=== PATIENT | male | born 1990 | race Caucasian/White ===

== ENCOUNTER 2016-12-22 20:37 | Emergency (ER) | payer OTHER ==
--- NOTE | 2016-12-22 21:42 | ED ORDER SUMMARY ---
..... Patient: ADA MCELROY OrderSheet [facility] VisitID: [id number] [address] [place] [address] 26y, M Registration Date/Time: 12/22/2016 ORDER SHEET Weight: 113.3 kg (stated) Allergies: Penicillin, Codeine GENERAL ORDERS: UA-Culture if indicated Urgent (21:13 12/22/2016 EKoroleva P.A.-C) (21:15 TLewis R.N.) MEDICATION ORDERS: Valium PO 5 mg (HIGH ALERT MEDICATION, NOW) (20:54 12/22/2016 EKoroleva P.A.-C) (21:00 TLewis R.N.) Motrin PO 800 mg (NOW) (20:54 12/22/2016 EKoroleva P.A.-C) (21:01 TLewis R.N.) IV FLUIDS: ORDER SHEET NOTES: [Electronically signed by Elmira StricklandAGhada-Jose Antonio (22:08 12/22/2016)] [Electronically signed by Flavio Mcdonald R.N. (22:18 12/22/2016)] [Electronically locked/signed by Flavio Mcdonald R.N. (22:18 12/22/2016)]
--- NOTE | 2016-12-22 21:42 | ED NURSING NOTES ---
Clinical Report - Nurses [facility] [place] [address] 12/22/2016 20:39 Patient: ADA MCELROY TRIAGE Triage time 20:43. Acuity: LEVEL 3. Chief Complaint: BACK PAIN. --20:52 Flavio Mcdonald R.N. 20:41 12/22/16. BP: 136/69. HR: 70. RR: 20. O2 saturation: 98%. Temp: 98.1 F. Pain level now 06/19. --20:52 Flavio Mcdonald R.N. Weight: 113.3 kg stated. Height/Length: 74 inches Per Patient. BMI: 32.1. --20:46 Flavio Mcdonald R.N. Medications CeleBREX Oral. --20:48 Flavio Mcdonald R.N. Methocarbamol Oral. --20:48 Flavio Mcdonald R.N. Allergies Penicillin. --20:48 Flavio Mcdonald R.N. Codeine. --20:48 Flavio Mcdonald R.N. Medication/allergy information source: the patient. --20:52 Flavio Mcdonald R.N. History Arrived by private vehicle. Historian: patient. Accompanied by friend. This started yesterday. ( Pt started having back pain since yesterday. 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 Pt took methocarbinol 500mg x 2 before coming in today. Pt denies any numbness or tingling down the legs. Pt was able to ambulate to the room without assistance. Pt denies any urinary symptoms.). No history of recent trauma. 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 (methocarbinol x 2 500 mg). SOCIAL HX: No alcohol use or drug use. --20:52 Flavio Mcdonald R.N. PROBLEMS: Back Pain. --20:51 Flavio Mcdonald R.N. ADDITIONAL SURGERIES: Parathyroid sx. --20:50 Flavio Mcdonald R.N. Interventions ID band on patient. To treatment room. --20:52 Flavoi Mcdonald R.N. PHYSICAL ASSESSMENT GENERAL / NEURO / PSYCH: Alert. Oriented X 4. Appears in no acute distress. RESPIRATORY: Respirations not labored. Chest nontender. Breath sounds within normal limits. CVS: Normal heart rate and rhythm. Capillary refill less than 2 seconds. GI / : Abdomen soft and nontender. Bowel sounds within normal limits. EXTREMITIES: Sensation intact in extremities. ROM of extremities within normal limits. BACK: Limited ROM of the back. Soft tissue tenderness in the right mid thoracic paraspinous region. --20:52 Flavio Mcdonald R.N. NURSING PROGRESS NOTES Two patient identifiers checked. Call light placed in reach. Side rails up x 1. Bed placed in lowest position. --20:53 Flavio Mcdonald R.N. 21:00 12/22/2016 Valium (Diazepam) PO 5 mg given. 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 --21:00 Flavio Mcdonald R.N. 21:01 12/22/2016 Motrin PO 800 mg (NOW) was refused by patient because of they were told not to take motrin due to the high level of celebrex. Flavio Mcdonald --21:01 Flavio Mcdonald R.N. DISPOSITION / DISCHARGE Departure time: 22:17. Condition at departure: improved. ( no pain while laying down). No learning barriers present. Discharge instructions provided and reviewed with the patient and spouse. Reviewed warnings. Reviewed medication(s). Work note given (2 days). The patient was discharged by the physician. He was discharged home and accompanied by spouse. He left the Emergency Department ambulatory and via private vehicle. Spouse driving. ( The asked to speak to the PA and was upset that nothing was done for her , who was not in pain while laying down. Pt has been taken muscle relaxers at home and was given valium in the hospital and a prescription for it. The stated she wish she had never came to "[facility]"). --22:18 Flavio Mcdonald R.N. 22:04 12/22/16. BP: 132/67. HR: 67. RR: 15. O2 saturation: 100%. Temp: 98.3 F. Pain level now 0/10. --22:18 Flavio Mcdonald R.N. Locked/Released at 12/22/2016 22:18 by Flavio Mcdonald R.N.
--- NOTE | 2016-12-22 21:42 | ED ORDER SUMMARY ---
..... Patient: ADA MCELROY OrderSheet [facility] VisitID: [id number] [address] [place] [address] 26y, M Registration Date/Time: 12/22/2016 ORDER SHEET Weight: 113.3 kg (stated) Allergies: Penicillin, Codeine GENERAL ORDERS: UA-Culture if indicated Urgent (21:13 12/22/2016 EKoroleva P.A.-C) (21:15 TLewis R.N.) MEDICATION ORDERS: Valium PO 5 mg (HIGH ALERT MEDICATION, NOW) (20:54 12/22/2016 EKoroleva P.A.-C) (21:00 TLewis R.N.) Motrin PO 800 mg (NOW) (20:54 12/22/2016 EKoroleva P.A.-C) (21:01 TLewis R.N.) IV FLUIDS: ORDER SHEET NOTES: [Electronically signed by Elmira StricklandAGhada-Jose Antonio (22:08 12/22/2016)] [Electronically signed by Flavio Mcdonald R.N. (22:18 12/22/2016)] [Electronically locked/signed by Flavio Mcdonald R.N. (22:18 12/22/2016)]
--- NOTE | 2016-12-22 21:42 | ED NURSING NOTES ---
Clinical Report - Nurses [facility] [place] [address] [address] [place] [address] 12/22/2016 20:39 Patient: ADA MCELROY TRIAGE Triage time 20:43. Acuity: LEVEL 3. Chief Complaint: BACK PAIN. --20:52 Flavio Mcdonald R.N. 20:41 12/22/16. BP: 136/69. HR: 70. RR: 20. O2 saturation: 98%. Temp: 98.1 F. Pain level now 06/19. --20:52 Flavio Mcdonald R.N. Weight: 113.3 kg stated. Height/Length: 74 inches Per Patient. BMI: 32.1. --20:46 Flavio Mcdonald R.N. Medications CeleBREX Oral. --20:48 Flavio Mcdonald R.N. Methocarbamol Oral. --20:48 Flavio Mcdonald R.N. Allergies Penicillin. --20:48 Flavio Mcdonald R.N. Codeine. --20:48 Flavio Mcdonald R.N. Medication/allergy information source: the patient. --20:52 Flaivo Mcdonald R.N. History Arrived by private vehicle. Historian: patient. Accompanied by friend. This started yesterday. ( Pt started having back pain since yesterday. 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 Pt took methocarbinol 500mg x 2 before coming in today. Pt denies any numbness or tingling down the legs. Pt was able to ambulate to the room without assistance. Pt denies any urinary symptoms.). No history of recent trauma. 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 (methocarbinol x 2 500 mg). SOCIAL HX: No alcohol use or drug use. --20:52 Flavio Mcdonald R.N. PROBLEMS: Back Pain. --20:51 Flavio Mcdonald R.N. ADDITIONAL SURGERIES: Parathyroid sx. --20:50 Flavio Mcdonald R.N. Interventions ID band on patient. To treatment room. --20:52 Flavio Mcdonald R.N. PHYSICAL ASSESSMENT GENERAL / NEURO / PSYCH: Alert. Oriented X 4. Appears in no acute distress. RESPIRATORY: Respirations not labored. Chest nontender. Breath sounds within normal limits. CVS: Normal heart rate and rhythm. Capillary refill less than 2 seconds. GI / : Abdomen soft and nontender. Bowel sounds within normal limits. EXTREMITIES: Sensation intact in extremities. ROM of extremities within normal limits. BACK: Limited ROM of the back. Soft tissue tenderness in the right mid thoracic paraspinous region. --20:52 Flavio Mcdonald R.N. NURSING PROGRESS NOTES Two patient identifiers checked. Call light placed in reach. Side rails up x 1. Bed placed in lowest position. --20:53 Flavio Mcdonald R.N. 21:00 12/22/2016 Valium (Diazepam) PO 5 mg given. Allergies verified, confirmed 5 rights and sedative warning given to the patient and patient's public relations officer. --21:00 Flavio Mcdonald R.N. 21:01 12/22/2016 Motrin PO 800 mg (NOW) was refused by patient because of they were told not to take motrin due to the high level of celebrex. Flavio Mcdonald --21:01 Flavio Mcdonald R.N. DISPOSITION / DISCHARGE Departure time: 22:17. Condition at departure: improved. ( no pain while laying down). No learning barriers present. Discharge instructions provided and reviewed with the patient and spouse. Reviewed warnings. Reviewed medication(s). Work note given (2 days). The patient was discharged by the physician. He was discharged home and accompanied by spouse. He left the Emergency Department ambulatory and via private vehicle. Spouse driving. ( The asked to speak to the PA and was upset that nothing was done for her , who was not in pain while laying down. Pt has been taken muscle relaxers at home and was given valium in the hospital and a prescription for it. The stated she wish she had never came to "[facility]"). --22:18 Flavio Mcdonald R.N. 22:04 12/22/16. BP: 132/67. HR: 67. RR: 15. O2 saturation: 100%. Temp: 98.3 F. Pain level now 0/10. --22:18 Flavio Mcdonald R.N. Locked/Released at 12/22/2016 22:18 by Flavio Mcdonald R.N.
--- NOTE | 2016-12-22 21:42 | ED CLINICAL REPORT ---
Clinical Report - Physicians/Mid Levels [facility] [address] [place] [address] 12/22/2016 20:39 Patient: ADA MCELROY Time Seen: 21:22 Dec 22 2016. Arrived- By private vehicle. Historian- patient. HISTORY OF PRESENT ILLNESS Chief Complaint: BACK PAIN. It is described as being moderate in degree and in the area of the right lower ribs. The quality is noted to be "pain". Onset was just prior to arrival and it is still present. No bladder dysfunction or bowel dysfunction. Additional history - Patient reports right lower ribs pain and back pain since yesterday,pain improves while laying supine, worsens with any attempt of movement attempt to sit. In stand. Patient denies an injury. Similar symptoms previously: None. REVIEW OF SYSTEMS No fever, chills, difficulty with urination, urinary frequency or vaginal discharge. No irregular periods, headache, depression, sore throat or difficulty breathing. No abdominal pain, calf pain, chest pain, cough or difficulty breathing. No pedal edema or palpitations. All systems otherwise negative, except as recorded above. SOCIAL HISTORY No alcohol use or drug use. ADDITIONAL NOTES The nursing notes have been reviewed. PHYSICAL EXAM Vital Signs: 12/22/2016 20:41 BP: 136/69. HR: 70. RR: 20. O2 saturation: 98%. Temp: 98.1 F. Appearance: Alert. No acute distress. Eyes: Pupils equal, round and reactive to light. ENT: Ears normal. Neck: Normal inspection. Neck nontender. CVS: Heart sounds normal. Pulses normal. No decreased pulses. Respiratory: No respiratory distress. Breath sounds normal. Back: Muscle spasm of the back. Moderate soft tissue tenderness in the right upper thoracic area. No vertebral point tenderness. Skin: Skin warm. Normal skin color. No rash. Neuro: Oriented X 3. Mood/affect normal. LABS, X-RAYS, AND EKG Laboratory Tests: UA-Culture if indicated: (DANYEL: 12/22/2016 21:00) ( MsgRcvd 12/22/2016 21:39) Final results Test Result Flag Units (Reference) URINE COLOR YELLOW URINE APPEARANCE CLEAR URINE GLUCOSE NEGATIVE (NEGATIVE) URINE BILIRUBIN NEGATIVE (NEGATIVE) URINE KETONE NEGATIVE (NEGATIVE) URINE SPECIFIC GRAVITY 1.025 (1.010-1.030) URINE PH 6.0 (5.0-8.0) URINE PROTEIN NEGATIVE (NEGATIVE) URINE UROBILINOGEN 0.2 EU/dL (0.2-1.0) URINE NITRITE NEGATIVE (NEGATIVE) URINE BLOOD NEGATIVE (NEGATIVE) URINE LEUK ESTERASE NEGATIVE (NEGATIVE) URINE RBC RARE rbc/hpf (0-1) URINE WBC 0-1 wbc/hpf (0-1) URINE EPITHELIAL CELLS NONE SEEN EPI/hpf (0-5) URINE BACTERIA NONE SEEN (NONE SEEN) URINE COMMENT CULT NOT INDICATED 2+ MUCUSURINE CULTURES ARE SET-UP BASED ON THE FOLLOWING CRITERIA:POSITIVE NITRITEPOSITIVE LEUKOCYTE ESTERASEGREATER THAN 10 WHITE BLOOD CELLSMODERATE (2+) OR GREATER BACTERIA . PROGRESS AND PROCEDURES Course of Care: There are no risks for spinal epidural abscess or hematoma as patient is without any risk factors such as IVDA or evidence of active infection, no midline tenderness to percussion. Hence I do not feel emergent imaging with an MRI is indicated. However I did discuss with the patient that if these symptoms develop, or if the pain does not resolve an MRI may need to be done outpatient, or in the ED if symptoms worsen acutely or new onset of the above mentioned symptoms develop. NO sob/ chest pain. Reproducible pain. Improves with no movement. Worsens with movement. Patient is stable. Symptoms better. Patient/family counseled. Disposition: Discharged. CLINICAL IMPRESSION Sprain of the thoracic spine. INSTRUCTIONS Apply ice. Limit lifting. No strenuous activity. Do not work for two days. (ice and heat). Prescription Medications: Valium 2 mg: take 1 orally every 12 hours for 5 days as needed for muscle spasm. Dispense ten (10). Substitution is permissible. Follow-up: Follow up with doctor in two days. (Electronically signed by Elmira Strickland P.A.-C 12/22/2016 22:08)
--- NOTE | 2016-12-22 22:18 | ED DISCHARGE INSTRUCTIONS ---
Patient: ADA MCELROY General Instructions [facility] VisitID: [id number] [place] [address] 26y, M Registration Date/Time: 12/22/2016 Sprain of the thoracic spine. INSTRUCTIONS Apply ice. Limit lifting. No strenuous activity. Do not work for two days. (ice and heat). Prescription Medications: Valium 2 mg: take 1 orally every 12 hours for 5 days as needed for muscle spasm. Dispense ten (10). Substitution is permissible. Follow-up: Follow up with doctor in two days. ADDITIONAL INFORMATION Back Pain [Acute Or Chronic] Back pain is usually caused by an injury to the muscles or ligaments of the spine. Sometimes the disks that separate each bone in the spine may bulge and cause pain by pressing on a nearby nerve. Back pain may also appear after a sudden twisting/bending force (such as in a car accident), after a simple awkward movement, or lifting something heavy with poor body positioning. In either case, muscle spasm is often present and adds to the pain. Acute back pain usually gets better in one to two weeks. Back pain related to disk disease, arthritis in the spinal joints or spinal stenosis (narrowing of the spinal canal) can become chronic and last for months or years. Unless you had a physical injury (for example, a car accident or fall) X-rays are usually not ordered for the initial evaluation of back pain. If pain continues and does not respond to medical treatment, x-rays and other tests may be performed at a later time. Home Care: You may need to stay in bed the first few days. But, as soon as possible, begin sitting or walking to avoid problems with prolonged bed rest (muscle weakness, worsening back stiffness and pain, blood clots in the legs). When in bed, try to find a position of comfort. A firm mattress is best. Try lying flat on your back with pillows under your knees. You can also try lying on your side with your knees bent up towards your chest and a pillow between your knees. Avoid prolonged sitting. This puts more stress on the lower back than standing or walking. During the first two days after injury, apply an ICE PACK to the painful area for 20 minutes every 2-4 hours. This will reduce swelling and pain. HEAT (hot shower, hot bath or heating pad) works well for muscle spasm. You can start with ice, then switch to heat after two days. Some patients feel best alternating ice and heat treatments. Use the one method that feels the best to you. You may use acetaminophen (Tylenol) or ibuprofen (Motrin, Advil) to control pain, unless another pain medicine was prescribed. [NOTE: If you have chronic liver or kidney disease or ever had a stomach ulcer or GI bleeding, talk with your doctor before using these medicines.] Be aware of safe lifting methods and do not lift anything over 15 pounds until all the pain is gone. Follow Up with your doctor or this facility if your symptoms do not start to improve after one week. Physical therapy may be needed. [NOTE: If X-rays were taken, they will be reviewed by a radiologist. You will be notified of any new findings that may affect your care.] Get Prompt Medical Attention if any of the following occur: Pain becomes worse or spreads to your legs Weakness or numbness in one or both legs Loss of bowel or bladder control Numbness in the groin or genital area You have been given the following additional information: Back Pain (Acute Or Chronic) Limit lifting. No strenuous activity. Do not work for two days. (Electronically signed by Elmira Strickland P.A.-C 12/22/2016 22:08)
--- NOTE | 2016-12-22 22:18 | ED MAR SUMMARY ---
..... Medication Administration Record [facility] [address] [place] [address] Patient: ADA MCELROY Visit ID: [id number] 26y, M Weight: 113.3 kg Height/Length: 74 in BMI: 32.1 ALLERGIES: Codeine, Penicillin Given 21:00 12/22/2016 Flavio Mcdonald R.N. Medication Administered: VALIUM [PO] (DIAZEPAM), Dose: 5 mg PO. Medication Ordered: Valium PO 5 mg (HIGH ALERT MEDICATION, NOW).
--- NOTE | 2016-12-22 22:18 | ED MAR SUMMARY ---
..... Medication Administration Record [facility] [address] [place] [address] Patient: ADA MCELROY Visit ID: [id number] 26y, M Weight: 113.3 kg Height/Length: 74 in BMI: 32.1 ALLERGIES: Codeine, Penicillin Given 21:00 12/22/2016 Flavio Mcdonald R.N. Medication Administered: VALIUM [PO] (DIAZEPAM), Dose: 5 mg PO. Medication Ordered: Valium PO 5 mg (HIGH ALERT MEDICATION, NOW).
--- NOTE | 2016-12-22 22:18 | ED MED RECONCILIATION SUMMARY ---
Patient: ADA MCELROY Medication Reconciliation Report [facility] VisitID: [id number] [address] [place] [address] 26y, M Registration Date/Time: 12/22/2016 Weight: 113.3 kg Height/Length: 74 in. BMI: 32.1 ALLERGIES: Codeine, Penicillin The patient's Home Medications are listed below: THE FOLLOWING MEDICATIONS NEED TO BE RECONCILED: CeleBREX Oral Methocarbamol Oral The source(s) of the original Home Medication information: patient The following Medications were given to the patient in the Emergency Department: Valium [PO] PO 5 mg, administered: 12/22/2016 9:00:00 PM The following Medications were prescribed to the patient: Valium 2 mg: take 1 orally every 12 hours for 5 days as needed for muscle spasm. Dispense ten (10). Substitution is permissible. -- Elmira Strickland P.A.-C
--- NOTE | 2016-12-22 22:18 | ED MED RECONCILIATION SUMMARY ---
Patient: ADA MCELROY Medication Reconciliation Report [facility] VisitID: [id number] [address] [place] [address] 26y, M Registration Date/Time: 12/22/2016 Weight: 113.3 kg Height/Length: 74 in. BMI: 32.1 ALLERGIES: Codeine, Penicillin The patient's Home Medications are listed below: THE FOLLOWING MEDICATIONS NEED TO BE RECONCILED: CeleBREX Oral Methocarbamol Oral The source(s) of the original Home Medication information: patient The following Medications were given to the patient in the Emergency Department: Valium [PO] PO 5 mg, administered: 12/22/2016 9:00:00 PM The following Medications were prescribed to the patient: Valium 2 mg: take 1 orally every 12 hours for 5 days as needed for muscle spasm. Dispense ten (10). Substitution is permissible. -- Elmira Strickland P.A.-C
== END 2016-12-22 22:10 | disposition home or self-care (01) ==
LOC: ED SRH 20:37
DX: S23.3XXA Sprain of ligaments of thoracic spine, initial encounter (principal); X58.XXXA Exposure to other specified factors, initial encounter; Y93.9 Activity, unspecified; Y92.9 Unspecified place or not applicable; Z88.5 Allergy status to narcotic agent; Z88.0 Allergy status to penicillin
CPT/HCPCS: 90004